=== PATIENT | male | born 1975 | race Caucasian/White ===

== ENCOUNTER 2017-07-25 11:22 | Emergency (ER) | payer BC ==
[~2017-07-25] VITALS: Ht 182.9 cm; Wt 88.6 kg
[2017-07-25] MEDS ORDERED: ONDANSETRON 4MG/2ML VIAL (J2405) IV ONE (12:45)
[2017-07-25 13:15] LABS: BASO % 0.3 % (0.0-1.0); EOS % 0.1 % (0.0-3.0); LARGE UNSTAINED CELL # 0.1 K/mm3 (0.0-0.4); LARGE UNSTAINED CELL % 0.9 % (0.0-4.0); LYMPH # 1.4 K/mm3 (1.5-4.5); MEAN CORPUSCULAR HEMOGLOBIN 31.9 pg (27.0-33.0); MEAN CORPUSCULAR HGB CONC 36.4 g/dl (32.0-36.5); MEAN CORPUSCULAR VOLUME 87.7 fl (80.0-96.0); MONO # 0.7 K/mm3 (0.0-0.8); MONO % 4.9 % (0.0-5.0); NEUTROPHILS # 12.2 K/mm3 (1.8-7.7); NEUTROPHILS % 84.9 % (36.0-66.0); PLATELET COUNT, AUTOMATED 301 k/mm3 (150-450); WHITE BLOOD COUNT 14.4 K/mm3 (4.0-10.0)
[2017-07-25] MEDS ORDERED: NS 1,000 ML IV ONE (13:30)
[2017-07-25] MEDS ORDERED: MECLIZINE 25 MG TABLET PO ONE (13:30)
[2017-07-25] MEDS ORDERED: KETOROLAC 30 MG/ML VIAL (J1885) IV ONE (13:30)
[2017-07-25 13:45] LABS: ANION GAP 9 MEQ/L (8-16); BLOOD UREA NITROGEN 10 MG/DL (7-18); CALCIUM LEVEL 9.4 MG/DL (8.5-10.1); CARBON DIOXIDE LEVEL 26 MEQ/L (21-32); CHLORIDE LEVEL 102 MEQ/L (98-107); CREATININE FOR GFR 1.26 MG/DL (0.70-1.30); GLOMERULAR FILTRATION RATE > 60.0 (>60); GLUCOSE, FASTING 108 MG/DL (70-105); POTASSIUM SERUM 3.5 MEQ/L (3.5-5.1); SODIUM LEVEL 137 MEQ/L (136-145)
[2017-07-25 13:52] LABS: ERYTHROCYTE SEDIMENTATION RATE 8 mm/hr (0-15)
[2017-07-25] MEDS ORDERED: ZOFR4TAB3 PO (14:46)
[2017-07-25] MEDS ORDERED: MECL-86 PO (14:46)
[2017-07-25] MEDS ORDERED: NAPR500T PO (14:46)
[2017-07-25 14:48] VITALS: BP 118/69
--- NOTE | 2017-07-25 14:50 | REP ---
CT Head without contrast HISTORY: Headache COMPARISON: None There is no intraparenchymal hemorrhage, acute infarct, mass or midline shift. The ventricular system is normal in appearance. There is no extra cerebral collection. There is no fracture. The visualized sinuses are clear. IMPRESSION: There is no intracranial lesion. Signed by David Molina MD 07/25/2017 12:44 P
== END 2017-07-25 14:59 | disposition home or self-care (01) ==
LOC: M ED 11:22
DX: R51 Headache (principal); H53.2 Diplopia
CPT/HCPCS: 36415; 70450; 80048; 85025; 85610; 85652; 85730; 96374; 96375; 99284; J1885; J2405